=== PATIENT | female | born 2000 | race Caucasian/White ===

== ENCOUNTER 2018-08-26 16:18 | Emergency (ER) | payer OTHER ==
[~2018-08-26] VITALS: Ht 170.2 cm; Wt 54.4 kg
--- NOTE | 2018-08-26 16:20 | NUR ---
Patient ambulated to bed 2 with family. RN evaluating patient at bedside.
[2018-08-26 16:22] VITALS: BP 119/67
--- NOTE | 2018-08-26 16:27 | NUR ---
C/O SHARP R KNEE PAIN X2 DAYS, 7/10 S/P JUMPING ON TRAMPOLINE. PT STATES SHE HEARD A POP AND THE PAIN BEGAN AFTER. ABLE TO BEAR WEIGHT WITH DISCOMFORT. M/S FUNCTION INTACT. NO OBVIOUS DEFORMITY, MILD ECCHYMOSIS NOTED TO R KNEE.
--- NOTE | 2018-08-26 16:27 | NUR ---
gave pt cup for urine
--- NOTE | 2018-08-26 16:34 | NUR ---
Dr. Barros evaluating patient at bedside.
[2018-08-26] MEDS ORDERED: KETOROLAC 60 MG/2 ML VIAL IM ONE (16:45)
[2018-08-26 18:13] VITALS: BP 108/72
== END 2018-08-26 18:13 | disposition home or self-care (01) ==
LOC: MED 16:18
DX: S86.811A Strain of other muscle(s) and tendon(s) at lower leg level, right leg, initial encounter (principal); F12.10 Cannabis abuse, uncomplicated; Z88.1 Allergy status to other antibiotic agents; X58.XXXA Exposure to other specified factors, initial encounter; Y93.44 Activity, trampolining; Y92.830 Public park as the place of occurrence of the external cause; Y99.8 Other external cause status
CPT/HCPCS: 29505; 93971; 96372; 99284; J1885; Q0092